=== PATIENT | male | born 1975 | race Caucasian/White ===

== ENCOUNTER 2017-01-19 11:46 | Emergency (ER) | payer BC ==
[2017-01-19] MEDS ORDERED: Sodium Chloride 0.9% 1000 ML 1,000 ML IV STA (12:30)
[2017-01-19 12:41] LABS: Bilirubin NEGATIVE (NEGATIVE); Blood 50 Ery/ul (0-5); COMPLETE URINE MICROSCOPIC? YES; Collection Type VOID; Glucose NEGATIVE (NEGATIVE); Leukocyte Esterase TRACE (NEGATIVE)
[2017-01-19 12:41] LABS: BASOPHIL % 0.5 % (0.0-0.4); Eosinophil % 4.5 % (0.00-5.0); Granulocytes % 61.8 % (36.0-66.0); Lymphocytes % 21.6 % (24.0-44.0); Mean Cell Volume 88.6 fl (78-100); Mean Corpuscular Hemoglobin 30.8 pg (26-32); Mean Platelet Volume 10.7 fl (6-9.5); Monocytes % 11.6 % (0.0-12.0); Platelet Count 268 K/mm3 (150-450); Red Blood Count 4.93 M/mm3 (4.1-5.6); Red Cell Distribution Width 12.4 % (11.5-14.0); White Blood Count 8.4 K/mm3 (4.0-10.5)
[2017-01-19 12:42] LABS: ADD URINE CULTURE? YES (NO)
[2017-01-19] MEDS ORDERED: Sodium Chloride 0.9% 1000 ML 1,000 ML ONE (12:42)
[2017-01-19 12:45] LABS: Bacteria FEW /HPF (NEGATIVE); Epithelial Cells RARE /HPF (FEW); WBC 0-2 /HPF (0-5)
--- NOTE | 2017-01-19 13:01 | ERPHSYRPT ---
- History of Present Illness Time Seen by Provider: 01/19/17 11:57 Source: patient, family (father) Patient Subjective Stated Complaint: weakness and diaphoresis today after starting new med yesterday for fast heart rate. Triage Nursing Assessment: ambulated to room per self. skin w/d, color normal, resp easy. denies dizziness. ramos without difficulty. a/o times three Physician History: CC: weakness Hx: 41 y/o patient of Dr Xavier Jonas. He works at [employer]. He had episode of palpitations a few days ago. Heart rate was high so he was started on propranolol TID. He took it twice yesterday and took one dose today at 5AM. Today he feels general weakness, dark urine, fatigue. No headache, chest pain, shortness of breath, abd pain, N/V. Some loose stool but no diarrhea. No fever or chills. No hx of this in the past. Timing/Duration: today Severity: moderate Allergies/Adverse Reactions: No Known Drug Allergies Allergy (Verified 01/19/17 12:22) Home Medications: Hydrocodone Bit/Acetaminophen [Hydrocodon-Acetaminophn 10-325] 1 ea PO DAILY PRN PRN 12/24/15 [History] Gabapentin 400 mg [Neurontin 400 MG] 400 mg PO HS 01/19/17 [History] Lisinopril 20 mg [Zestril 20 MG] 20 mg PO DAILY 01/19/17 [History] Meloxicam 15 mg [Meloxicam 15 MG] 15 mg PO DAILY 01/19/17 [History] Propranolol HCl 20 mg [Inderal 20 MG] 20 mg PO TID 01/19/17 [History] Hx Tetanus, Diphtheria Vaccination/Date Given: No Hx Influenza Vaccination/Date Given: No Hx Pneumococcal Vaccination/Date Given: No - Review of Systems Constitutional: Fatigue, Malaise, Weakness, No Fever, No Chills Eyes: No Symptoms Ears, Nose, & Throat: No Symptoms Respiratory: No Cough, No Dyspnea Cardiac: No Chest Pain Abdominal/Gastrointestinal: No Abdominal Pain, No Nausea, No Vomiting, No Diarrhea Genitourinary Symptoms: No Dysuria Skin: No Rash Neurological: No Focal Weakness, No Headache, No Parasthesia Psychological: Anxiety (felt like a panic attack 3 days ago- never had in the past) All Other Systems: Reviewed and Negative - Past Medical History Pertinent Past Medical History: Yes Neurological History: No Pertinent History ENT History: No Pertinent History Cardiac History: Hypertension Respiratory History: No Pertinent History Endocrine Medical History: No Pertinent History Musculoskeletal History: Other GI Medical History: No Pertinent History History: No Pertinent History Psycho-Social History: No Pertinent History Male Reproductive Disorders: No Pertinent History Other Medical History: back problems - Past Surgical History Past Surgical History: No Neuro Surgical History: No Pertinent History Cardiac: No Pertinent History Gastrointestinal: No Pertinent History Genitourinary: No Pertinent History Musculoskeletal: No Pertinent History Male Surgical History: No Pertinent History - Social History Smoking Status: Never smoker Exposure to second hand smoke: No Drug Use: none Patient Lives Alone: Yes - Nursing Vital Signs Nursing Vital Signs: Initial Vital Signs Temperature 98.1 F 01/19/17 11:51 Pulse Rate 66 01/19/17 11:51 Respiratory Rate 16 01/19/17 11:51 Blood Pressure 135/84 01/19/17 11:51 O2 Sat by Pulse Oximetry 98 01/19/17 11:51 Pain Scale Pain Intensity 0 - Physical Exam General Appearance: alert Eye Exam: PERRL/EOMI Ears, Nose, Throat Exam: normal ENT inspection, pharynx normal, moist mucous membranes Neck Exam: normal inspection, non-tender, supple Respiratory Exam: normal breath sounds, lungs clear Cardiovascular Exam: regular rate/rhythm, No murmur, No edema, No pulse deficit Gastrointestinal/Abdomen Exam: soft, No tenderness, No distention, No mass, No guarding Male Genitalia Exam: normal genitalia Back Exam: normal inspection, normal range of motion Extremity Exam: normal inspection, normal range of motion, No pedal edema Neurologic Exam: alert, oriented x 3, cooperative, 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, sensation nml, No motor deficits Skin Exam: warm, dry, No rash SpO2 Interpretation: normal SpO2: 98 Oxygen Delivery: Room Air - Course Nursing assessment & vital signs reviewed: Yes EKG Interpreted by Me: RATE (59), Sinus Alexis, NORMAL AXIS, NORMAL INTERVALS ( QTc 391), NORMAL QRS, NORMAL ST-T Ordered Tests: Active Orders 24 hr Category Date Time Status Clean Catch Urine Specimen STAT Care 01/19/17 12:30 Active EKG-ER Only STAT Care 01/19/17 12:30 Active IV Insertion STAT Care 01/19/17 12:30 Active Orthostatic Vital Signs STAT Care 01/19/17 13:47 Active CBC W DIFF Stat Lab 01/19/17 12:10 Completed CMP Stat Lab 01/19/17 12:10 Completed CULTURE,URINE Stat Lab 01/19/17 12:32 Received TROPONIN Q3H Lab 01/19/17 12:45 Completed TROPONIN Q3H Lab 01/19/17 15:45 Ordered TROPONIN Q3H Lab 01/19/17 18:45 Ordered TROPONIN Q3H Lab 01/19/17 21:45 Ordered TROPONIN Q3H Lab 01/20/17 00:45 Ordered UA W/ MICROSCOPIC Stat Lab 01/19/17 12:32 Completed Medication Summary Discontinued Medications Generic Name Dose Route Start Last Admin Trade Name Freq PRN Reason Stop Dose Admin Sodium Chloride 1,000 mls @ 999 mls/hr 01/19/17 12:30 01/19/17 12:42 Sodium Chloride 0.9% 1000 Ml IV 01/19/17 13:30 999 mls/hr .Q1H1M STA Administration Sodium Chloride Confirm 01/19/17 12:42 Sodium Chloride 0.9% 1000 Ml Administered 01/19/17 12:43 Dose 1,000 mls @ ud .ROUTE .STK-MED ONE Lab/Rad Data: Laboratory Result Diagrams 01/19/17 12:10 01/19/17 12:10 Laboratory Results 01/19/17 01/19/17 01/19/17 Range/Units 12:45 12:32 12:10 WBC (4.0-10.5) K/mm3 RBC (4.1-5.6) M/mm3 Hgb (12.5-18.0) gm/dl Hct (42-50) % MCV (78-100) fl MCH (26-32) pg MCHC (32-36) g/dl RDW (11.5-14.0) % Plt Count (150-450) K/mm3 MPV (6-9.5) fl Gran % (36.0-66.0) % Lymphocytes % (24.0-44.0) % Monocytes % (0.0-12.0) % Eosinophils % (0.00-5.0) % Basophils % (0.0-0.4) % Basophils # (0-0.4) Sodium 140 (136-145) mEq/L Potassium 4.1 (3.5-5.1) mEq/L Chloride 103 (98-107) mEq/L Carbon Dioxide 29.0 (21-32) mEq/L Anion Gap 12.1 (5-15) MEQ/L BUN 15 (9-20) mg/dL Creatinine 1.10 (0.55-1.30) mg/dl Estimated GFR > 60 ML/MIN Glucose 87 (70-110) MG/DL Calcium 9.4 (8.5-10.1) mg/dL Total Bilirubin 0.50 (0.2-1.0) mg/dL AST 29 (15-37) U/L ALT 68 (12-78) U/L Alkaline Phosphatase 64 (46-116) U/L Troponin I < 0.017 (0.000-0.056) ng/ml Serum Total Protein 7.9 (6.4-8.2) gm/dL Albumin 4.3 (3.4-5.0) g/dL Ur Collection Type VOID Urine Color YELLOW (YELLOW) Urine Appearance CLEAR (CLEAR) Urine pH 6.0 (5-6) Ur Specific [place] 1.020 (1.005-1.025) Urine Protein NEGATIVE (Negative) Urine Ketones NEGATIVE (NEGATIVE) Urine Blood 50 (0-5) [place]/ul Urine Nitrite NEGATIVE (NEGATIVE) Urine Bilirubin NEGATIVE (NEGATIVE) Urine Urobilinogen NORMAL (0-1) mg/dL Ur Leukocyte Esterase TRACE (NEGATIVE) Urine Microscopic RBC 5-10 (0-2) /HPF Urine Microscopic WBC 0-2 (0-5) /HPF Ur Epithelial Cells RARE (FEW) /HPF Urine Bacteria FEW (NEGATIVE) /HPF Urine Glucose NEGATIVE (NEGATIVE) mg/dL Specimen Received 01/19/17 1232 01/19/17 Range/Units 12:10 WBC 8.4 (4.0-10.5) K/mm3 RBC 4.93 (4.1-5.6) M/mm3 Hgb 15.2 (12.5-18.0) gm/dl Hct 43.7 (42-50) % MCV 88.6 (78-100) fl MCH 30.8 (26-32) pg MCHC 34.8 (32-36) g/dl RDW 12.4 (11.5-14.0) % Plt Count 268 (150-450) K/mm3 MPV 10.7 H (6-9.5) fl Gran % 61.8 (36.0-66.0) % Lymphocytes % 21.6 L (24.0-44.0) % Monocytes % 11.6 (0.0-12.0) % Eosinophils % 4.5 (0.00-5.0) % Basophils % 0.5 (0.0-0.4) % Basophils # 0.04 (0-0.4) Sodium (136-145) mEq/L Potassium (3.5-5.1) mEq/L Chloride (98-107) mEq/L Carbon Dioxide (21-32) mEq/L Anion Gap (5-15) MEQ/L BUN (9-20) mg/dL Creatinine (0.55-1.30) mg/dl Estimated GFR ML/MIN Glucose (70-110) MG/DL Calcium (8.5-10.1) mg/dL Total Bilirubin (0.2-1.0) mg/dL AST (15-37) U/L ALT (12-78) U/L Alkaline Phosphatase (46-116) U/L Troponin I (0.000-0.056) ng/ml Serum Total Protein (6.4-8.2) gm/dL Albumin (3.4-5.0) g/dL Ur Collection Type Urine Color (YELLOW) Urine Appearance (CLEAR) Urine pH (5-6) Ur Specific [place] (1.005-1.025) Urine Protein (Negative) Urine Ketones (NEGATIVE) Urine Blood (0-5) [place]/ul Urine Nitrite (NEGATIVE) Urine Bilirubin (NEGATIVE) Urine Urobilinogen (0-1) mg/dL Ur Leukocyte Esterase (NEGATIVE) Urine Microscopic RBC (0-2) /HPF Urine Microscopic WBC (0-5) /HPF Ur Epithelial Cells (FEW) /HPF Urine Bacteria (NEGATIVE) /HPF Urine Glucose (NEGATIVE) mg/dL Specimen Received - Progress Progress Note: 01/19/17 13:01 TSH was nl earlier this week. His symptoms are likley related to propranolol side effect. Will give fluid and check labs. 01/19/17 14:25 Pt feels better after IVF. Labs and EKG ok. Called Dr Jonas. Will hold proranolol and rest over weekend and follow up with Dr Jonas Sunday. Counseled pt/family regarding: lab results, diagnosis, need for follow-up - Departure Time of Disposition: 14:25 Departure Disposition: Home Clinical Impression: Generalized weakness Condition: Stable Critical Care Time: No Referrals: LEAH JONAS [Primary Care Provider] - Instructions: Fatigue Additional Instructions: Stop propranolol. See Dr Jonas at 11:15 Sunday. Rest over weekend. Return for problems or concerns. Drink plenty of fluids.
[2017-01-19 13:13] LABS: ALBUMIN 4.3 g/dL (3.4-5.0); ALKALINE PHOSPHATASE 64 U/L (46-116); ANION GAP 12.1 MEQ/L (5-15); BLOOD UREA NITROGEN 15 mg/dL (9-20); CHLORIDE 103 mEq/L (98-107); Glucose 87 MG/DL (70-110); Potassium 4.1 mEq/L (3.5-5.1); SGOT/AST 29 U/L (15-37); SGPT/ALT 68 U/L (12-78); SODIUM 140 mEq/L (136-145); Total Protein 7.9 gm/dL (6.4-8.2)
[2017-01-19 13:49] VITALS: BP 118/77; PULSE 74
[2017-01-19 14:27] VITALS: O2SAT 98
== END 2017-01-19 14:35 | disposition home or self-care (01) ==
LOC: ED 11:46
DX: R53.1 Weakness (principal); R61 Generalized hyperhidrosis; R82.90 Unspecified abnormal findings in urine; R53.83 Other fatigue; Z79.899 Other long term (current) drug therapy; I10 Essential (primary) hypertension
CPT/HCPCS: 36000; 36415; 80053; 81000; 84484; 85025; 87086; 93005; 96360; 99284